=== PATIENT | female | born 1930 | race Caucasian/White ===

== ENCOUNTER 2019-01-18 08:02 | Inpatient (IN) | payer OTHER ==
[~2019-01-18] VITALS: Ht 157.5 cm; Wt 56.2 kg
[2019-01-18] VITALS (15 sets, daily range): BP systolic 140–205; BP diastolic 58–90
[~2019-01-18 08:02] MED LIST: ADULT LOW DOSE81 MG PO; ALDACTONE25 MG PO; APAP500 PO; ASPIR 8181 MG PO; ATORVASTATIN CA20 MG PO; CARVEDILOL12.5 MG PO; CENTRUM SILVER1 EAC1 PO; CENTRUM SILVER1 EAC4; CRESTOR10 MG PO; ENALAPRIL MALEAT5 M1 PO; ENDOCET 5-3251 EACH PO; FIBER POWDER; FLONASE 0.05%50 MCG NASAL; FLUTICASONE PRO30 G1 NASAL; FUROSEMIDE 40 M40 M1 GT; HYOSCYAMINE PO; ICAPS AREDS FO1 EACH PO; LANOXIN 0.120.125 M1 PG; LASIX 40 MG TAB40 M1 GT; MAG DELAY64 MG PO; METOCLOPRAMIDE 55 M1 PO; MICRO-K 10 MEQ10 MEQ OR; MIRALAX17 GM PO; NIASPAN 500 MG500 M1 PO; NITROGLYCERIN0.4 MG SUBLING; PEPCID COMPLET1 EACH PO; PERCOCET PO; PLAVIX 75 MG TA75 MG PO; POTASSIUM20; PROTONIX40 M2 PO; REFRESH OPTIVE1 EACH OP; REGLAN 5 MG TAB5 MG PO; SLOW-MAG64 MG PO; VASOTEC10 MG PO; VICODIN 5-5001 EACH PO; VITAMIN B-12500 MCG PO; VITAMIN D3400 UNIT PO; VITAMIN D400 UNI1 PO; XARELTO15 MG PO; [UNRECOGNIZED DRUG - CODE]
[2019-01-18 08:24] LABS: ABSOLUTE EOSINOPHILS 0.1 thou/uL (0.0-0.7); ABSOLUTE LYMPHOCYTES 1.3 thou/uL (0.8-5.3); ABSOLUTE MONOCYTES 0.6 thou/uL (0.0-1.2); ABSOLUTE NEUTROPHILS 5.1 thou/uL (1.6-8.1); BASOPHILS 0.4 %; HEMATOCRIT 39.1 % (37.0-47.0); HEMOGLOBIN 12.7 gm/dL (12.0-15.0); LYMPHOCYTES 18.4 %; MCH 30.8 pg (26.0-34.0); MCHC 32.5 g/dL (28.0-37.0); MCV 94.6 fL (80.0-100.0); MONOCYTES 8.2 %; MPV 9.1 fl. (7.2-11.1); NUCLEATED RBCS 0 /100WBC; PLATELET COUNT* 210 thou/uL (150-400); RBC 4.14 mil/uL (4.20-5.00); RDW-CV 13.7 % (10.5-14.5); WBC 7.2 thou/uL (4.0-11.0)
[2019-01-18 08:32] LABS: APTT 24.6 Seconds (25.0-31.3); INR 1.1; PROTIME 11.3 Seconds (9.20-11.50)
--- NOTE | 2019-01-18 08:36 | NUR ---
see code stemi form for documentation
[2019-01-18] MEDS ORDERED: PRESERVISION A1 EAC2 PO (08:39)
[2019-01-18] MEDS ORDERED: IMDUR 30 MG TAB30 M1 PO (08:39)
[2019-01-18] MEDS ORDERED: TYLENOL EXTRA500 MG PO (08:39)
[2019-01-18 08:40] LABS: ANION GAP 5 mmol/L (7-16); BUN 19 mg/dL (7-18); CALCIUM 9.2 mg/dL (8.5-10.1); CHLORIDE 105 mmol/L (98-107); CO2 28 mmol/L (21-32); GLUCOSE 131 mg/dL (70-99); POTASSIUM 4.1 mmol/L (3.5-5.1); SODIUM 138 mmol/L (136-145); TROPONIN-I LEVEL <0.06 ng/mL (<0.06)
[2019-01-18 08:42] LABS: ALBUMIN 3.6 g/dL (3.4-5.0); ALKALINE PHOSPHATASE 44 U/L (46-116); NT-PRO BRAIN NAT PEPTIDE 2568 pg/mL (<300); SGOT 33 U/L (15-37); SGPT 53 U/L (30-65); TOTAL PROTEIN 6.9 g/dL (6.4-8.2)
--- NOTE | 2019-01-18 11:59 | NUR ---
enalapril 1.25 iv and zofran 4mg iv given for nausea and elevated BP per order from Dr. Patiño
--- NOTE | 2019-01-18 17:44 | EKG ---
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: : 1930 Requested By: Salo Patiño Order Number: [id number] Carly MD: Kilo Hinkle Measurements Intervals [place] Rate: 56 P: -66 [place]: 206 QRS: -36 QRSD: 89 T: 134 QT: 367 QTc: 355 Interpretive Statements Sinus or ectopic atrial rhythm LVH with secondary repolarization abnormality Possible Anterior infarct, old Compared to ECG 09/10/2016 14:10:16 Ectopic atrial rhythm now present Sinus rhythm no longer present Ventricular premature complex(es) no longer present First degree AV block no longer present Q waves no longer present Myocardial infarct finding still present Electronically Signed On 01-18-2019 17:44:45 CDT by Kilo Hinkle [email or web address] <ELECTRONICALLY SIGNED> By: Kilo Hinkle MD, FAC 01/18/19 1744 0845 0845 Kilo Hinkle MD, [facility] /EPI
--- NOTE | 2019-01-18 17:44 | EKG ---
[place] [address] ELECTROCARDIOGRAM REPORT Name: JEMIMA GARNER Room: [address] ADM IN M.R.#: [id number] Admission: 01/18/19 Attend Phys: Nanette Varela Discharge: Date of : [birth year] Report #: [id number] THIS REPORT FOR: //name// [facility] ED Test Date: 2019-01-18 Test Time: 08:05:07 Pat Name: JEMIMA GARNER Department: Room: [address] Gender: F Cutch Cleaner: SLAVA EMT STUDENT : 1930 Requested By: Poppy Chowdhury Order Number: [id number] Carly MD: Kilo Hinkle Measurements Intervals [place] Rate: 64 P: -72 AR: 216 QRS: -33 QRSD: 96 T: 137 QT: 358 QTc: 370 Interpretive Statements Sinus or ectopic atrial rhythm Borderline prolonged AR interval LVH with secondary repolarization abnormality Possible anterior infarct, age indeterminate Compared to ECG 09/10/2016 14:10:16 Ectopic atrial rhythm now present Sinus rhythm no longer present Ventricular premature complex(es) no longer present Q waves no longer present Myocardial infarct finding still present Electronically Signed On 01-18-2019 17:44:23 CDT by Kilo Hinkle [email or web address] <ELECTRONICALLY SIGNED> By: Kilo Hinkle MD, [facility] 01/18/19 1744 4 4 Kilo Hinkle MD, [facility] /EPI
--- NOTE | 2019-01-18 17:45 | EKG ---
[place] [address] ELECTROCARDIOGRAM REPORT Name: JEMIMA GARNRE Room: [address] ADM IN M.R.#: [id number] Admission: 01/18/19 Attend Phys: Nanette Varela Discharge: Date of : [birth year] Report #: [id number] THIS REPORT FOR: //name// [facility] Test Date: 2019-01-18 Test Time: 10:52:13 Pat Name: JEMIMA GARNER Department: Room: [facility] Gender: F Event Marketing Coordinator: CRISTINO : 1930 Requested By: Poppy Chowdhury Order Number: [id number] MD: Kilo Hinkle Measurements Intervals [place] Rate: 55 P: -46 [place]: 213 QRS: -30 QRSD: 93 T: 130 QT: 374 QTc: 358 Interpretive Statements Sinus or ectopic atrial rhythm Ventricular premature complex Borderline prolonged [place] interval LVH with secondary repolarization abnormality Inferior infarct, old Compared to ECG 09/10/2016 14:10:16 Ectopic atrial rhythm now present Sinus rhythm no longer present Q waves no longer present Myocardial infarct finding still present Electronically Signed On 01-18-2019 17:45:20 CDT by Kilo Hinkle [email or web address] <ELECTRONICALLY SIGNED> By: Kilo Hinkle MD, FACC 01/18/19 1745 1052 1052 Kilo Hinkle MD, FACC /EPI
--- NOTE | 2019-01-18 19:52 | NUR ---
PT TO UNIT AT APPROX 1300 FROM HVAC TECHNICIAN. A/O. TELE TRACKING NSR/AJIT. PT HYPERTENSIVE- MD AWARE AND NO ADDITIONAL ORDERS AT THIS TIME. HEMATOMA (DEVELOPED IN CATH RECOVERY) OUTLINED ONCE PT ARRIVED TO ROOM AND HAS REMAINED STABLE. PT C/O CHRONIC BACK PAIN/CHRONIC HEADACHE AND NAUSEA- MEDICATED PER EMAR. CHAN TO DD WITH ADEQUATE CY OUTPUT. EDUCATED ON SAFETY AND PLAN OF CARE. PLEASE SEE ASSESSMENT FOR ADDITIONAL INFORMATION. WILL CONTINUE TO MONITOR
[2019-01-19] VITALS: BP 140/73
[2019-01-19 02:30] VITALS: BP 187/72
[2019-01-19 04:49] VITALS: BP 173/65
--- NOTE | 2019-01-19 04:56 | NUR ---
ASSUMED CARE OF PT AFTER REPORT AT 1930. PT A&OX4. VSS. PHYSICAL ASSESSMENT COMPLETED AND CHARTED. PT ON RA WITH 94% O2 SAT. PT TRACING SR ON TELE. PT POST CATH SITE DRESSING MINIMAL DRIED BLOOD NOTED. HEMATOMA NOTED BORDERED WITH MARKERS AND NO INCREASE IN SIZE.NO TENDERNESS. PT COMPLAINED OF HEADACHE & BACK PAIN-PAIN MEDS GIVEN. ALSO, PT STILL COMPLAINED OF NAUSEA EVEN AFTER ZOFRAN WAS GIVEN- DR ADHIKARI INFORMED WITH ADDITIONAL ORDERS. PT RESTED WELL ON BED. CALL LIGHT WITHIN REACH.
[2019-01-19 05:05] LABS: HEMATOCRIT 31.6 % (37.0-47.0); MCHC 33.2 g/dL (28.0-37.0); MCV 93.4 fL (80.0-100.0); MPV 9.6 fl. (7.2-11.1); RBC 3.38 mil/uL (4.20-5.00); RDW-CV 13.2 % (10.5-14.5); WBC 10.1 thou/uL (4.0-11.0)
[2019-01-19 05:21] LABS: HEMOGLOBIN 10.5 gm/dL (12.0-15.0)
[2019-01-19 05:24] LABS: ALKALINE PHOSPHATASE 39 U/L (46-116); ANION GAP 6 mmol/L (7-16); BUN 16 mg/dL (7-18); CALCIUM 8.6 mg/dL (8.5-10.1); CHLORIDE 103 mmol/L (98-107); CHOLESTEROL 94 mg/dL (<200); CO2 24 mmol/L (21-32); CREATININE 0.9 mg/dL (0.6-1.3); GLUCOSE 106 mg/dL (70-99); HDL CHOLESTEROL 38 mg/dL (>40); LDL CHOLESTEROL 39 mg/dL (<100); POTASSIUM 3.8 mmol/L (3.5-5.1); SGOT 26 U/L (15-37); SGPT 33 U/L (30-65); SODIUM 133 mmol/L (136-145); TC:HDL 2.5 Ratio (Not establshd); TOTAL BILIRUBIN 1.4 mg/dL (<0.1-1.0); TOTAL PROTEIN 5.7 g/dL (6.4-8.2); TRIGLYCERIDE 85 mg/dL (<150); TROPONIN-I LEVEL 0.23 ng/mL (<0.06); VLDL 17 mg/dL (<40)
[2019-01-19 05:33] LABS: SERUM ASSESSMENT Clear
[2019-01-19 08:00] VITALS: BP 188/67
--- NOTE | 2019-01-19 12:42 | NUR ---
Sosa catheter DC'ed at 1230. 10cc balloon deflated, patient tolerated well.
[2019-01-19 13:00] VITALS: BP 158/55
[2019-01-19] MEDS ORDERED: ATORVASTATIN CA40 MG PO (14:29)
[2019-01-19] MEDS ORDERED: BRILINTA90 MG PO (14:32)
[2019-01-19 14:45] VITALS: BP 169/66
--- NOTE | 2019-01-19 15:24 | CARD ---
[address] [address] CARDIAC CATH REPORT Name: JEMIMA GARNER Room: [address] IN .R.#: [id number] Admission: 01/18/19 Attend Phys: Nanette Varela Discharge: Date of : [birth year] Report #: [id number] THIS REPORT FOR: //name// APPROVED REPORT Study performed: 01/18/2019 08:02:35 Patient Details Patient Status: Out-Patient Room #: The patient is a 88 year-old female Event Personnel Salo Patiño Puttying And Calking Supervisor, Henrietta Alberto Setup Technician, Brittani Clancy Monitor, Fernando Gresham Scrub Procedures Performed Complete Heart Catheterization, Selective Right and Left Coronary Angiography, Left Ventriculogram, PTCA with StentingArt Access - R femoral artery* Left Heart Cath w/or w/o Coronaries [id number] [facility] CINDY Place w/wo Plasty Single CIRC [id number] Indication Non-STEMI Risk Factors Hypercholesterolemia, Hypertension Admission/Lab Medications/Medications given during procedure Aspirin, Platelet Aff. Inhib., Angiomax bolus and infusion Procedure Narrative The patient was brought electively to the Cardiac Catheterization Laboratory and was prepped and draped in a sterile manner. The right femoral was infiltrated with 2% Lidocaine subcutaneous anesthesia. A 6fr Ultimum Sheath sheath was inserted into the right femoral artery. Coronary angiography was performed using coronary diagnostic catheters. The right coronary system was accessed and visualized with a 6fr JR 4 catheter. The left coronary system was accessed and visualized with a 6fr JL 4 catheter. The left ventricle was accessed and visualized with a 6fr Pigtail catheter. Left ventricular/Aortic Valve gradient assessed via catheter pullback. Pre-demployment femoral angiogram was performed . Closure device was deployed with a 6 Fr Angioseal STS 6Fr. [place] [address] CARDIAC CATH REPORT Name: JEMIMA GARNER Room: [address] IN [facility].#: [id number] Admission: 01/18/19 Attend Phys: Nanette Varela Discharge: Date of : [birth year] Report #: [id number] Sedation start time: 09:05 Case end Time: 10:01 Fluoro Time: 9.6 minutes Dose: DAP 19985 cGycm2 790.48 mGy Contrast Type and Amount: Visipaque 225 ml Coronary Angiography The patient's coronary anatomy is right dominant. Diagnostic Cath Left Main 0% narrowing LAD 40% mid vessel narrowing with tandem 60 and 80% apical LAD stenoses Circumflex 80 Percent mid vessel narrowing with local dye density difference suggesting thrombus at the site Right Coronary Dominant vessel with 30% proximal mid and distal narrowings Left Ventriculography Left Ventriculography was not performed. Hemodynamics The aortic pressure is 191/72 mmHg with a mean of mmHg. The left ventricular pressure is 220/15 mmHg with a mean of mmHg. The left ventricular end diastolic pressure is 30 mmHg. Pullback from the left ventricle to the aorta revealed no gradient across the aortic valve. PCI Technique Lesion Anticoagulation was achieved with Angiomax Drip. Patient was preloaded with Angiomax IV 5.9 mg per kg. Percutaneous coronary intervention was performed on the mid circumflex artery segment. The lesion stenosis prior to intervention was 80% with MAREN 3 flow. A 6F XB LAD 3.5 Guide Catheter was used to engage the LCA ostium. A IG: BMW 190cm Interventional Guidewire was used to cross the lesion. BALLOON DILATION A Balloon catheter Trek RX 2.5 X 12 was inserted and inflated up to 12.00atm for 13seconds. Additional Inflation: 15.00atm for 13seconds. STENT DEPLOYMENT A drug-eluting stent Xience Estefany 2.5X12mm was inserted and inflated up to 10.00atm for 13seconds. Additional Inflation: 12.00[place] [address] CARDIAC CATH REPORT Name: JEMIMA GARNER Room: [address]#: [id number] Admission: 01/18/19 Attend Phys: Nanette Varela Discharge: Date of : [birth year] Report #: [id number] 14seconds. Final angiography reveals 10 % stenosis with MAREN 3 flow. Conclusion #1 significant coronary artery disease characterized by the following: A 40% mid LAD narrowing with tandem 60 and 80% distal LAD stenoses B dominant right coronary artery with 30% proximal mid and distal narrowings C nondominant circumflex with 80% mid vessel stenosis and local dye density difference suggesting thrombus at the site #2 significant systolic hypertension with significant elevation of left ventricular end-diastolic pressure at rest #3 successful percutaneous coronary intervention with deployment of drug-eluting stent at site of 80% mid circumflex stenosis with 10% residual narrowing and MAREN-3 flow the distal vessel without residual thrombus Recommendations Cardiac Risk Reduction Program Aggressive Medical Therapy Medications Administered Aspirin (any) Ticagrelor Diagnostic Cath Approved by: Salo Patiño MD Date/Time: 01/19/2019 15:21:37 <ELECTRONICALLY SIGNED> By: Salo Patiño MD, [facility] 01/19/19 1523 1523 1523Salo Patiño MD, FACC /INF
--- NOTE | 2019-01-19 16:21 | NUR ---
ORDER RECEIVED TO DISCHARGE [facility] TO CARE WITH SON. MED REC, MEDICATION EDUCATION, AND STROKE EDUCATION COVERED WITH PATIENT AND SON. ADEQUATE TIME GIVEN FOR CARE AND MEDICATION QUESTIONS. PATIENT AND SON EDUCATED ON ACTIVITY AND WEIGHT LIFTING RESTRICTIONS R/T RIGHT GROIN CARDIAC CATH SITE AND NEW CARDIAC STENT PLACEMENT. IV AND TELEMETRY PACK REOMVED. JARETT ET STABLE AT TIME OF DISCHARGE. DISCHARGE TIME OF 15:30. HOURLY ROUNDING COMPLETED FOR PATIENT SAFETY.
--- NOTE | 2019-01-19 17:10 | EKG ---
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: RB : 1930 Requested By: Salo Patiño Order Number: [id number] Reading MD: Kilo Hinkle Measurements Intervals [place] Rate: 63 P: -45 DC: 199 QRS: -33 QRSD: 91 T: 124 QT: 433 QTc: 444 Interpretive Statements Sinus or ectopic atrial rhythm Ventricular premature complex LVH with secondary repolarization abnormality Inferior infarct, old Probable anterior infarct, age indeterminate Compared to ECG 01/18/2019 10:52:13 No significant changes Electronically Signed On 01-19-2019 17:09:51 CDT by Kilo Hinkle [email or web address] <ELECTRONICALLY SIGNED> By: Kilo Hinkle MD, FACC 01/19/19 1709 0601 0601 Kilo Hinkle MD, [facility] /EPI
== END 2019-01-19 15:25 | disposition home or self-care (01) | DRG 246 ==
LOC: M.CL 08:02 → M.ERS 08:02 → M.TBA-CV 08:52 → M.2W 08:52 → M.TBA-CV 10:27 → M.2W 13:00
PROVIDERS: Internal Medicine; Personal Emergency Response Attendant; ADMIT Internal Medicine
PROC: B211YZZ Fluoroscopy of Multiple Coronary Arteries using Other Contrast (ICD-10-PCS; principal; 2019-01-18)
PROC: B41JYZZ Fluoroscopy of Other Lower Arteries using Other Contrast (ICD-10-PCS; principal; 2019-01-18)
PROC: 4A023N7 Measurement of Cardiac Sampling and Pressure, Left Heart, Percutaneous Approach (ICD-10-PCS; principal; 2019-01-18)
PROC: 027034Z Dilation of Coronary Artery, One Artery with Drug-eluting Intraluminal Device, Percutaneous Approach (ICD-10-PCS; principal; 2019-01-18)
DX: I21.3 ST elevation (STEMI) myocardial infarction of unspecified site (principal); I50.23 Acute on chronic systolic (congestive) heart failure; I25.110 Atherosclerotic heart disease of native coronary artery with unstable angina pectoris; I24.9 Acute ischemic heart disease, unspecified; I65.21 Occlusion and stenosis of right carotid artery; I25.5 Ischemic cardiomyopathy; G89.29 Other chronic pain; M54.5 Low back pain; E78.5 Hyperlipidemia, unspecified; I11.0 Hypertensive heart disease with heart failure; E11.9 Type 2 diabetes mellitus without complications; I25.10 Atherosclerotic heart disease of native coronary artery without angina pectoris; I25.2 Old myocardial infarction; Z95.5 Presence of coronary angioplasty implant and graft; Z86.711 Personal history of pulmonary embolism; Z88.8 Allergy status to other drugs, medicaments and biological substances; Z79.82 Long term (current) use of aspirin; Z79.899 Other long term (current) drug therapy; Z90.5 Acquired absence of kidney

== ENCOUNTER 2020-01-06 17:39 | Inpatient (IN) | payer OTHER ==
[~2020-01-06] VITALS: Ht 162.6 cm; Wt 59.6 kg
--- NOTE | ~2020-01-06 | CON ---
[facility] [address] [place] [address] CONSULTATION Name: JEMIMA GARNER Room: [place] [address] ADM IN M.R.#: [id number] Admission: 01/06/20 Attend Phys: Nanette Varela Discharge: Date of : [birth year] Report #: [id number] THIS REPORT FOR: //name// cc: Russell Lopez DO Russell Lopez DO ~ THIS REPORT FOR: //name// CC: Russell Oviedo DATE OF SERVICE: 01/07/2020 REQUESTING PHYSICIAN: Dr. Murcia REASON FOR CONSULTATION: Hyponatremia. HISTORY OF PRESENT ILLNESS: The patient is an 89-year-old female patient, brought in from a nursing facility. She has been in that facility for rehabilitation from a right shoulder surgery gone bad, which gave her septic arthritis. This was performed at [facility] recently. The patient has been on multiple antibiotics. She also has been dealing with low sodium levels in the nursing facility. Yesterday, her sodium was 120 and she was sent over to the hospital. In discussion with the nursing staff, it was conveyed to me that the patient had been drinking a lot of fluids in the nursing facility. This morning, the patient appears very lethargic and tired. She denies any significant pain except for some chronic pain in her shoulder, which is postoperative pain. She reported some nausea last night too, but no vomiting has been reported. Speech therapy was seeing her this morning and she has been cleared for honey thick nectar fluids. She denies any fevers. No chills. She has had bilateral pneumonia and has been getting antibiotics for the same. PAST MEDICAL HISTORY: Coronary artery disease, history of VT, history of coronary artery stent, apparently history of nephrectomy with removal of kidney in 2000, history of hypertension, dyslipidemia, carotid stenosis, renal cell cancer, and septic arthritis of right shoulder and recent surgery for the same. HOME MEDICATIONS: Reviewed and multiple. Acetaminophen, albuterol inhalers, ascorbic acid, lidocaine patch, enteric-coated aspirin, atorvastatin, cyanocobalamin, menthol, bisacodyl, calcium phosphate, cefazolin daily, clonidine at bedtime, carvedilol 25 mg twice daily, digoxin, enalapril 20 mg daily, MiraLax, levofloxacin daily, magnesium hydroxide, nitroglycerin, [place] [address] CONSULTATION Name: JEMIMA GARNER Room: [address] IN [facility]#: [id number] Admission: 01/06/20 Attend Phys: Nanette Varela Discharge: Date of : [birth year] Report #: [id number] oxybutynin 5 mg twice daily, oxycodone p.r.n., Plavix, cyclosporine eye drops, senna, spironolactone 25 mg daily, and diclofenac ointment. ALLERGIES: HYDRALAZINE AND AMLODIPINE. 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 No alcohol reported. No smoking. REVIEW OF SYSTEMS: She appears very lethargic and tired, barely opens eyes, gives answers and then drifts back to sleep right away. She denies any nausea. No fevers. No chills. Right shoulder pain. She is able to move her arms and her legs. PHYSICAL EXAMINATION: VITAL SIGNS: Her blood pressure this morning was 188/75 and was 137/86 in the middle of night; 2 liters oxygen by nasal cannula and 94% saturation on that; 37.1, temperature, and pulse of 73. LUNGS: Diminished bilaterally. Crackles on the right base, more on the left. Very poor air entry in the left base. HEART: Regular S1, S2. ABDOMEN: Soft. HEENT: Mucous membranes appear dry. EXTREMITIES: Show no edema over the legs, but there is edema over the upper thighs and especially over the hip. It is my understanding that the patient has not been very ambulatory and mostly in the bed. LABORATORY DATA: Her labs were reviewed. White count is 5.6 and hemoglobin is 8.6. Metabolic panel: Sodium is 121, potassium is 3.7, chloride 90, bicarbonate 22, BUN is 9, creatinine 0.9, calcium 8, AST 36, ALT 6, and CK 47. BNP 24,478. Albumin 2.0 and lipase 359. IMAGING STUDIES: Chest x-ray was done on admission, which shows fywn-og-xmqdhkdh cardiomegaly, bibasilar opacities, atelectasis, consolidation, bnpdh-hs-glpkjnwi bilateral pleural effusions, and no pneumothorax. ASSESSMENT: 1. Hyponatremia. Volume status is difficult to assess. Blood pressures have been on the higher side, but that could be driven by her pain too. 2. She appears euvolemic to maybe slightly hypervolemic by exam. 3. Bilateral pleural effusions and recent diagnosis of pneumonia. 4. Questionable history of increased water intake in the nursing facility. She has been on oxybutynin, clonidine, and narcotics. Many of these medications could give her anticholinergic side effects. 5. Recent shoulder surgery with septic arthritis. 6. History of coronary artery disease and hypertension. [address] [place] [address] CONSULTATION Name: JEMIMA GARNER Room: [address] IN [facility]#: [id number] Admission: 01/06/20 Attend Phys: Nanette Varela Discharge: Date of : [birth year] Report #: [id number] PLAN: 1. Hyponatremia. Workup has been initiated. Send urine for sodium and osmolality. She has a Sosa catheter in place. The patient received IV fluids on admission and then a dose of Lasix but that was many hours ago. Urine sample was drawn from the catheter directly and from the bag it may be a reasonable reflection of the volume status at this time. 2. Check uric acid level also. 3. Check thyroid studies. 4. Hyponatremia could be driven by the intrathoracic findings of pneumonia and bilateral pleural effusions, but I am not sure if the pleural effusions are parapneumonic or from fluid overload. Her BNP was markedly elevated, and she does have uvvf-pq-anhnvfjs cardiomegaly. An echocardiogram might be recommended unless reports can be obtained from the [facility] where many of those tests have already been done. For now, keep the patient on fluid restriction of 1.5 liters. Discussed in detail with the nursing staff. We will follow along and give further recommendations based on the testing done today. Thank you for the consult. By: 1041 1120Tasha Toledo MD /nt
[~2020-01-06 17:39] MED LIST changes: +ATORVASTATIN CA40 MG PO; +BRILINTA90 MG PO; +IMDUR 30 MG TAB30 M1 PO; +PRESERVISION A1 EAC2 PO; +TYLENOL EXTRA500 MG PO
[2020-01-06 17:44] VITALS: BP 123/81
[2020-01-06] MEDS ORDERED: APAP650 PO (18:03)
[2020-01-06] MEDS ORDERED: VITAMIN C500 M2 PO (18:03)
[2020-01-06] MEDS ORDERED: PROAIR HFA8.5 GM INH (18:03)
[2020-01-06] MEDS ORDERED: ASPERCREME1 EACH TOP (18:04)
[2020-01-06] MEDS ORDERED: VITAMIN B-121000 MC2 SUBLING (18:05)
[2020-01-06] MEDS ORDERED: ASA81BEC PO (18:05)
[2020-01-06] MEDS ORDERED: BIOFREEZE118 ML TOP (18:05)
[2020-01-06] MEDS ORDERED: LIPITOR40 MG PO (18:05)
[2020-01-06] MEDS ORDERED: CALCIUM-VITAMI1 EACH PO (18:06)
[2020-01-06] MEDS ORDERED: GENTLE LAXATIVE10 MG (18:06)
[2020-01-06] MEDS ORDERED: ANCEF 1GM1 GM/50 M1 IVPB (18:07)
[2020-01-06] MEDS ORDERED: DIGITEK125 MC2 PO (18:07)
[2020-01-06] MEDS ORDERED: CARVEDILOL25 MG PO (18:07)
[2020-01-06] MEDS ORDERED: CLONIDINE HCL0.2 M2 PO (18:07)
[2020-01-06] MEDS ORDERED: ENALAPRIL MALEA20 MG PO (18:08)
[2020-01-06] MEDS ORDERED: LACTOBACILLUS PO (18:09)
[2020-01-06] MEDS ORDERED: POLYOX WSR-3011 GM (18:09)
[2020-01-06] MEDS ORDERED: MILK OF MA400 MG/5 M PO (18:10)
[2020-01-06] MEDS ORDERED: LEVAQUIN 750 M750 MG PO (18:10)
[2020-01-06] MEDS ORDERED: [UNRECOGNIZED DRUG - OTHER] (18:10)
[2020-01-06] MEDS ORDERED: OXYBUTYNIN 5 MG5 M2 PO (18:11)
[2020-01-06] MEDS ORDERED: PERCOCET 5-3251 EACH PO (18:11)
[2020-01-06] MEDS ORDERED: NITROSTAT0.4 M1 (18:11)
[2020-01-06] MEDS ORDERED: RESTASIS1 EACH OPHTHALMIC (18:12)
[2020-01-06] MEDS ORDERED: FIBER0.4 GM PO (18:12)
[2020-01-06] MEDS ORDERED: PLAVIX 75 MG TA75 MG PO (18:12)
[2020-01-06] MEDS ORDERED: VOLTAREN GEL 1100 G1 TOP (18:13)
[2020-01-06] MEDS ORDERED: SPIRONOLACTONE25 MG PO (18:13)
[2020-01-06] MEDS ORDERED: SENNA8.8 MG/5 M PO (18:13)
[2020-01-06 18:17] LABS: INFLUENZA A ANTIGEN Negative (Negative); INFLUENZA B ANTIGEN Negative (Negative)
[2020-01-06 18:25] LABS: ABSOLUTE EOSINOPHILS 0.1 thou/uL (0.0-0.7); ABSOLUTE LYMPHOCYTES 0.7 thou/uL (0.8-5.3); ABSOLUTE MONOCYTES 0.5 thou/uL (0.0-1.2); ABSOLUTE NEUTROPHILS 4.3 thou/uL (1.6-8.1); BASOPHILS 0.3 %; EOSINOPHILS 2.1 %; HEMATOCRIT 25.1 % (37.0-47.0); HEMOGLOBIN 8.6 gm/dL (12.0-15.0); LYMPHOCYTES 12.3 %; MCH 31.1 pg (26.0-34.0); MCHC 34.4 g/dL (28.0-37.0); MCV 90.5 fL (80.0-100.0); MONOCYTES 9.1 %; MPV 8.6 fl. (7.2-11.1); NUCLEATED RBCS 0 /100WBC; PLATELET COUNT* 289 thou/uL (150-400); POLYS 76.2 %; RBC 2.77 mil/uL (4.20-5.00); RDW-CV 13.2 % (10.5-14.5); WBC 5.6 thou/uL (4.0-11.0)
[2020-01-06 18:35] LABS: INR 1.3; PROTIME 13.1 Seconds (9.20-11.50)
[2020-01-06 18:36] LABS: CREATININE 0.9 mg/dL (0.6-1.3); POTASSIUM 3.7 mmol/L (3.5-5.1)
[2020-01-06 18:46] LABS: TOTAL BILIRUBIN 0.3 mg/dL (<0.1-1.0); TOTAL PROTEIN 5.6 g/dL (6.4-8.2)
[2020-01-06 19:44] LABS: URINE BILIRUBIN NEGATIVE (Negative); URINE BLOOD NEGATIVE (Negative); URINE CLARITY CLEAR; URINE COLOR YELLOW; URINE GLUCOSE-RANDOM NEGATIVE (Negative); URINE KETONES TRACE (Negative); URINE LEUKOCYTES-REFLEX NEGATIVE (Negative); URINE NITRITE-REFLEX NEGATIVE (Negative); URINE PROTEIN 2+ (Negative); URINE SPECIFIC GRAVITY 1.025 (1.005-1.030); URINE UROBILINOGEN 0.2 E.U./dl (0.2-1.0)
[2020-01-06 19:53] LABS: SQUAMOUS 0-3 Few /LPF (0-3); URINE RBC 0-2 Rare /HPF (0-2)
[2020-01-06 19:54] LABS: BACTERIA-REFLEX 1-9 Few /HPF (None Seen); CRYSTALS None Seen /LPF (None Seen); FINE GRANULAR CASTS 0-3 Few /LPF (None Seen); HYALINE CASTS 4-10 Moderate /LPF (None Seen); MUCUS 0-3 Light strn/LPF (None Seen)
[2020-01-06 22:30] VITALS: BP 192/100; BP 204/100
[2020-01-06 22:35] VITALS: BP 184/86
[2020-01-07 01:10] VITALS: BP 137/86
[2020-01-07 04:00] VITALS: BP 169/93
--- NOTE | 2020-01-07 06:00 | NUR ---
RECEIVED REPORT FROM GEORGE MILLER AT 2210. PT ARRIVED TO UNIT AT 2230. NURSING ASSESSMENT COMPLETED, PRICE ECONOMIST IN PLACE, TRACING SR 1D PACS. HOURLY ROUNDING COMPLETED. Q2H REPOSITIONING COMPLETED. FAMILY IN ROOM WITH PATIENT. PT PLACED NPO FOR TROUBLE SWALLOWING. [facility] PER PROTOCOL.
[2020-01-07 08:00] VITALS: BP 188/75
--- NOTE | 2020-01-07 10:10 | EKG ---
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: [facility] : 1930 Requested By: Jorge Murcia Order Number: [id number] MD: Kuldeep Mays Measurements Intervals [place] Rate: 71 P: -70 [place]: 230 QRS: -15 QRSD: 94 T: 152 QT: 349 QTc: 380 Interpretive Statements Sinus or ectopic atrial rhythm Ventricular premature complex Prolonged [place] interval Probable inferior infarct, age indeterminate Probable anterior infarct, age indeterminate Compared to ECG 01/19/2019 06:01:42 First degree AV block now present Left ventricular hypertrophy no longer present Myocardial infarct finding still present Electronically Signed On 01-07-2020 10:09:33 MOLD SHIFTER by Kuldeep Mays [email or web address] <ELECTRONICALLY SIGNED> By: Kuldeep Mays MD, [facility] 01/07/20 1009 1818 1818 Kuldeep Mays MD, [facility] /EPI
--- NOTE | 2020-01-07 14:36 | NUR ---
MET WITH PT AND GRANDDTR/RINA TO DISCUSS HOME SITUATION/DC PLANNING. PT WAS ADMITTED FROM [facility], HAS BEEN THERE SINCE 12/25 POST A SHOULDER INFECTION AND SURGERY, GETTING IV ABX. PER RINA, PT GETS INJECTIONS IN HER SHOULDER AND WAS HAVING PAIN, DEVELOPED INFECTION AND HAD SURGERY. PLAN IS FOR HER TO RETURN TO SNF AT [place]. ASKED DC PLANNED TO CONTACT [facility] AND FAX UPDATE. THEY WILL HAVE TO OBTAIN INSURANCE AUTH AGAIN PRIOR TO RETURN. SON/ERIC IS DPOA. CM TO FOLLOW [place] [phone] FAX [phone] OR [phone]
--- NOTE | 2020-01-07 14:48 | NUR ---
CONFIRMED WITH KRYSTAL/TRACEE AT [facility] THAT THE PATIENT WILL BE READY TO DISCHARGE NEXT WEEK AND WOULD LIKE TO RETURN TO THEIR SNF. FAXED UPDATED CLINICALS. THEY WILL SUBMIT FOR INSURANCE AUTHORIZATION ON 01/10/20. [facility] [phone]
--- NOTE | 2020-01-07 18:59 | NUR ---
PATINET RESTING IN BED. VSS. CHAN TO DRAIN WITH CLEAR LIGHT YELLOW OUT PUT. HOURLY ROUNDING COMPLETED FOR PATINET SAFETY.
[2020-01-07 20:20] VITALS: BP 205/92
[2020-01-08] VITALS: BP 149/59
[2020-01-08 04:00] VITALS: BP 154/62
--- NOTE | 2020-01-08 04:25 | NUR ---
ASSUMED CARE AT 1910H, ON NC AT 3LPM AND TOLERATED.NO RESPIRATORY DISTRESS NOTED.COMPLAINED OF BACK PAIN AND PRN MED GIVEN.TOOK ORAL PILL WELL WITH ASPIRATION PRECAUTION.FLUID RESTRICTION REITERATED.CONTINUE MONITORING AND TOWARD GOALS.
[2020-01-08 08:30] VITALS: BP 173/76
[2020-01-08 08:38] LABS: CALCIUM 7.5 mg/dL (8.5-10.1); CREATININE 0.8 mg/dL (0.6-1.3); URIC ACID* 1.9 mg/dL (2.6-7.2)
[2020-01-08 08:50] LABS: POTASSIUM 2.8 mmol/L (3.5-5.1)
[2020-01-08 15:46] VITALS: BP 179/86
[2020-01-08 20:10] VITALS: BP 190/87
[2020-01-09] VITALS: BP 173/74
[2020-01-09 05:43] LABS: ALBUMIN 1.9 g/dL (3.4-5.0); CALCIUM 7.4 mg/dL (8.5-10.1); CREATININE 0.7 mg/dL (0.6-1.3); MAGNESIUM 1.6 mg/dL (1.8-2.4); PHOSPHORUS* 1.9 mg/dL (2.5-4.9)
[2020-01-09 05:47] LABS: POTASSIUM 4.1 mmol/L (3.5-5.1)
--- NOTE | 2020-01-09 07:52 | NUR ---
PT CARE ASSUMED AT 1930. C/O SOB, SAT MAINTAINED, CONNECTED IN O2 FOR COMFORT. C/O PAIN, MEDICATION GIVEN PER EMAR. CALL LIGHT WITHIN REACH AND BED IN LOW POSITION. HOURLY ROUNDING DONE FOR PT SAFETY.
[2020-01-09 08:30] VITALS: BP 177/82
--- NOTE | 2020-01-09 10:00 | NUR ---
PATIENT ARRIVED TO UNIT FROM TELE AT 0945. RECEIVED REPORT FROM MARCOS Pratt RN. ALERT AND ORIENTED X 4. VITAL SIGNS STABLE ON 2L O2 NASAL CANULA. IV PATENT AND SALINE LOCKED. AGREE WITH PREVIOUS ASSESSMENT AND CHARTING. ORIENTED PATIENT TO ROOM. FALL PRECAUTIONS IN PLACE AND BED ALARM ON. CALL LIGHT WITHIN REACH. NURSING WILL CONTINUE TO MONITOR.
[2020-01-09 16:00] VITALS: BP 143/63
--- NOTE | 2020-01-09 18:02 | NUR ---
PATIENT ALERT AND ORIENTED X 4. FORGETFUL AT TIMES. VITAL SIGNS STABLE ON 2L O2 NASAL CANULA. IV PATENT AND SODIUM PHOSPHATE INFUSING AT THIS TIME. ANTIBIOTICS GIVEN PER MAR. DENIES NAUSEA AT THIS TIME. PAIN BEING MANAGED WITH PO MEDICATION. THIGH HIGH TEDS AND SCD'S IN PLACE BILATERALLY. FALL PRECAUTIONS IN PLACE AND BED ALARM ON. HOURLY ROUNDS MAINTAINED THROUGHOUT THE SHIFT. CALL LIGHT WITHIN REACH. NURSING WILL CONTINUE TO MONITOR.
[2020-01-09 20:00] VITALS: BP 157/86
--- NOTE | 2020-01-10 04:47 | NUR ---
PT A&0 X 3-4, FORGETFUL. VSS ON 1.5-2L O2. MEDS GIVEN ORDERED. PT TAKES PO MEDS WITH APPLE SAUCE. PAIN MANAGED WITH PERCOCET. CHAN IN PLACE. HOURLY ROUNDING COMPLETED. WILL CONTINUE TO MONITOR.
[2020-01-10 05:20] LABS: CALCIUM 7.6 mg/dL (8.5-10.1); CREATININE 0.7 mg/dL (0.6-1.3); MAGNESIUM 2.1 mg/dL (1.8-2.4); PHOSPHORUS* 2.6 mg/dL (2.5-4.9); POTASSIUM 4.3 mmol/L (3.5-5.1)
--- NOTE | 2020-01-10 07:30 | CON ---
[address] [address] CONSULTATION Name: JEMIMA GARNER Room: [address] IN M.R.#: [id number] Admission: 01/06/20 Attend Phys: Nanette Varela Discharge: Date of : [birth year] Report #: [id number] THIS REPORT FOR: //name// cc: Russell Lopez Ryan D. DO ~ THIS REPORT FOR: //name// CC: Russell Oviedo DATE OF SERVICE: 01/07/2020 INFECTIOUS DISEASE CONSULTATION ATTENDING PHYSICIAN: Devang Oviedo DO REASON FOR EVALUATION: Pneumonitis and complicated urinary tract infection. HISTORY OF PRESENT ILLNESS: Chart reviewed and the patient examined. This is an 89-year-old woman with significant medical history including some dementia. She has known vasculopathy. She is residing in a facility having a complication related to shoulder surgery with septic arthritis and had been on antibiotics. She was noted to have increasing weakness and some dyspnea. Evaluation noted decreased sodium levels and also suggestion of pneumonitis. She was started on therapy and was given fluid restriction. She did have a cough, although it is nonproductive. It is not clear if she had fevers. She is somewhat puzzled by why she is there. Additional evaluation included urinalysis which showed some pyuria. Influenza antigen was negative. Lactic acid was elevated at 2.5. Chest x-ray confirmed multifocal opacities bilaterally. Blood cultures were collected and are sterile thus far. She was empirically started on therapy with vancomycin and levofloxacin. ALLERGIES: LISTED AMLODIPINE AND HYDRALAZINE. CURRENT MEDICATIONS: Include lisinopril, clonidine, spironolactone, clopidogrel, oxybutynin, levofloxacin 750 mg q. 48 hours, lactobacillus, digoxin, carvedilol, atorvastatin, aspirin, vancomycin 500 mg twice a day, diclofenac, and Zosyn. PAST MEDICAL HISTORY: As described above, hypertension, hyperlipidemia, history of PE, renal cell carcinoma, previous nephrectomy, and acute myocardial infarction. SOCIAL HISTORY: Nonsmoker. No ethanol. No illicit drug use. FAMILY HISTORY: [place] [address] CONSULTATION Name: JEMIMA GARNER Room: [address]#: [id number] Admission: 01/06/20 Attend Phys: Nanette Varela Discharge: Date of : [birth year] Report #: [id number] REVIEW OF SYSTEMS: Denies any significant gastrointestinal related complaints. Appetite is somewhat diminished. She has no idea about any weight gain or weight loss. PHYSICAL EXAMINATION: GENERAL: She is pleasant and cooperative. She is in mild distress. She does have some significant hearing deficits, appears somewhat undernourished and chronically ill appearing. VITAL SIGNS: Temperature 98.8, pulse 74, respirations 14, and blood pressure 188/75. SKIN: Warm and dry. No rashes. HEENT: Normocephalic. Extraocular muscles intact. NECK: Supple. LUNGS: Few scattered coarse breath sounds, primarily at the bases. HEART: Regular. Occasional ectopy. She has a soft systolic murmur. ABDOMEN: Soft. No apparent tenderness. No peritoneal signs. GENITOURINARY AND RECTAL: Deferred. LABORATORY DATA: CBC on admission: White count of 5.6, H and H of 8.6 and 25.1, and platelets of 289. Electrolytes: Sodium 121, potassium 3.7, chloride 90, bicarbonate is 22, anion gap of 9, BUN and creatinine are 9 and 0.9, and glucose of 247. AST of 26 and ALT of 6. Albumin of 2.0. Total protein is 5.6. Estimated GFR of 59. Lactic acid of 2.5. Troponin is 0.08. Chest x-ray as described above, [id number] cardiomegaly and multifocal opacities in bilateral lung azul, right perihilar region and the bases. Urinalysis; white count 16-25. Lactic acid on repeat was 1.8. Prealbumin of 14.7. ASSESSMENT AND PLAN: Pneumonitis, likely complicated urinary tract infection that certainly remains tenuous at this point. She is not overtly toxic. We will pare down therapy. I think dual combination is reasonable to approach at this point. We would necessarily expect any sort of atypical issues and it certainly raises question of underlying occult process; however, with her recent hospitalization, she certainly had a chest x-ray which failed to show anything that suggested a mass, I suspect. I will see if it clears and if it persists, we may need additional imaging like CT of the chest. We will monitor expectantly. She is certainly at risk for nosocomial related infectious complications. <ELECTRONICALLY SIGNED> By: Clement Wilkinson MD 01/10/20 0730 1202 [id number] Wilkinson MD /nt
[2020-01-10 08:00] VITALS: BP 180/85
--- NOTE | 2020-01-10 11:54 | NUR ---
UPDATED KRYSTAL/ALEXANDRA TAPIA ON PT. SHE SAID FAMILY HAS PUT HER ROOM ON HOLD TO SAVE HER ROOM THERE. WILL UPDATE HER AGAIN TOMORROW. SHE WILL NEED TO GET INSURANCE AUTH FOR PT.TO RETURN. P.T./O.T. ORDERED.
--- NOTE | 2020-01-10 15:18 | 2DMMODE ---
[place] [address] 2 D/M-MODE ECHOCARDIOGRAM Name: JEMIMA GARNER Room: [address] IN [facility]#: [id number] Admission: 01/06/20 Attend Phys: Devang Oviedo Discharge: Date of : [birth year] Date of Service: 01/10/20 1517 Report #: [id number] THIS REPORT FOR: cc: Russell Lopez Ryan D. DO Holkins,Salo Roper MD [facility] ~ APPROVED REPORT Study performed: 01/10/2020 09:43:39 EXAM: Comprehensive 2D, Doppler, and color-flow Echocardiogram Patient Location: In-Patient Room #: [facility] Status: routine BSA: 1.60 HR: 71 bpm BP: 157/86 mmHg Rhythm: NSR Other Information Study Quality: Good Indications Pleural Effusion Elevated bnp 2D Dimensions IVSd: 9.07 (7-11mm) LVOT Diam: 19.77 (18-24mm) LVDd: 55.97 mm PWd: 9.18 (7-11mm) Ascending Ao: 31.95 (22-36mm) LVDs: 41.19 (25-40mm) Aortic Root: 26.95 mm Volumes Left Atrial Volume (Systole) LA ESV Index: 57.00 mL/m2 Aortic Valve AoV Peak Gagandeep.: 1.34 m/s AO Peak Gr.: 7.16 mmHg LVOT Max P.64 mmHg AO Mean Gr.: 3.70 mmHg LVOT Mean P.28 mmHg LVOT Max V: 0.81 m/s AO V2 VTI: 26.29 cm LVOT Mean V: 0.52 m/s JANY (VTI): 1.95 cm2 LVOT V1 VTI: 16.[place] [address] 2 D/M-MODE ECHOCARDIOGRAM Name: JEMIMA GARNER Room: [address] IN ..#: [id number] Admission: 01/06/20 Attend Phys: Devang Oviedo Discharge: Date of : [birth year] Date of Service: 01/10/20 1517 Report #: [id number] Mitral Valve E/A Ratio: 1.36 MV Decel. Time: 151.25 ms MV E Max Gagandeep.: 0.97 m/s MV PHT: 43.86 ms MVA (PHT): 5.02 cm2 Pulmonary Valve PV Peak Gagandeep.: 0.83 m/s PV Peak Gr.: 2.78 mmHg Tricuspid Valve RAP Estimate: 5.00 mmHg TR Peak Gr.: 54.74 mmHg RVSP: 59.00 mmHg PA Pressure: 59.00 mmHg Left Ventricle Left ventricle is moderately dilated. Regional wall motion abnormalities are noted with anterior apical and inferoapical akinesis. There is normal left ventricular wall thickness. Left ventricular systolic function is severely decreased. LVEF is 20-25%. The left ventricular diastolic function is normal. Right Ventricle Right ventricle is borderline dilated. The right ventricular systolic function is normal. Atria Left atrium is moderately dilated. Right atrium is mildly dilated. Aortic Valve Mild aortic valve sclerosis. No aortic regurgitation is present. There is no aortic valvular stenosis. Mitral Valve Mild mitral annular calcification. Trace mitral regurgitation. No evidence of mitral valve stenosis. Tricuspid Valve The tricuspid valve is normal in structure. Mild tricuspid regurgitation. Pulmonic Valve The pulmonary valve is normal in structure. There is no pulmonic [place]vular [place] [address] 2 D/M-MODE ECHOCARDIOGRAM Name: JEMIMA GARNER Room: [address] IN ..#: [id number] Admission: 01/06/20 Attend Phys: Devang Oviedo Discharge: Date of : [birth year] Date of Service: 01/10/20 1517 Report #: [id number] Great Vessels The aortic root is normal in size. IVC is normal in size and collapses >50% with inspiration. Pericardium There is no pericardial effusion. Left pleural effusion. <Conclusion> Left ventricle is moderately dilated. There is normal left ventricular wall thickness. Left ventricular systolic function is severely decreased. LVEF is 20-25%. Right ventricle is borderline dilated. Left atrium is moderately dilated. Right atrium is mildly dilated. Mild aortic valve sclerosis. No aortic regurgitation is present. There is no aortic valvular stenosis. Mild mitral annular calcification. Trace mitral regurgitation. No evidence of mitral valve stenosis. The tricuspid valve is normal in structure. Mild tricuspid regurgitation. IVC is normal in size and collapses >50% with inspiration. There is no pericardial effusion. Regional wall motion abnormalities are noted with anterior apical and inferoapical akinesis. <ELECTRONICALLY SIGNED> By: Salo Patiño MD, FACC 01/10/20 1517 1517 1517 Salo Patiño MD, FACC /INF
--- NOTE | 2020-01-10 17:46 | NUR ---
ASSUMED CARE AT 0730. ALERT ORIENTED PLEASANT COOPERATIVE. HX OF LOW SODIUM AND PNEUMONIA. HAS LOOSE COUGH AT INTERVALS. O2 AT 2L/M PER N/C. PT. TAKES MEDS WHOLE 1 AT A TIME WITH APPLESAUCE. FEEDS SELF WITH SET UP WITH L HAND DUE TO L SHOULDER ISSUES INFECTION. O.T. P.T. WORKED WITH PT. THIS AFTERNOON. CHAN PATENT WITH ANA M URINE TO DD BAG. TURNS SELF IN BED WHEN ASKED TO TO STRAIGHTEN LINENS. PICC LINE CAT FOR IV ANTIBIOTICS. USES CALL LIGHT APPROPRIATELY FOR ASSISTANCE.
[2020-01-10 19:41] VITALS: BP 136/109
[2020-01-11 03:24] LABS: ABSOLUTE EOSINOPHILS 0.1 thou/uL (0.0-0.7); ABSOLUTE LYMPHOCYTES 0.8 thou/uL (0.8-5.3); ABSOLUTE MONOCYTES 0.9 thou/uL (0.0-1.2); ABSOLUTE NEUTROPHILS 5.8 thou/uL (1.6-8.1); BASOPHILS 0.3 %; EOSINOPHILS 1.4 %; HEMATOCRIT 26.2 % (37.0-47.0); HEMOGLOBIN 8.9 gm/dL (12.0-15.0); LYMPHOCYTES 10.2 %; MCH 30.7 pg (26.0-34.0); MCHC 34.1 g/dL (28.0-37.0); MCV 90.2 fL (80.0-100.0); MONOCYTES 11.4 %; MPV 7.8 fl. (7.2-11.1); NUCLEATED RBCS 0 /100WBC; PLATELET COUNT* 386 thou/uL (150-400); POLYS 76.7 %; RBC 2.91 mil/uL (4.20-5.00); RDW-CV 13.7 % (10.5-14.5); WBC 7.5 thou/uL (4.0-11.0)
[2020-01-11 03:44] LABS: ALBUMIN 2.1 g/dL (3.4-5.0); CREATININE 0.7 mg/dL (0.6-1.3); MAGNESIUM 1.8 mg/dL (1.8-2.4); PHOSPHORUS* 2.3 mg/dL (2.5-4.9); POTASSIUM 4.1 mmol/L (3.5-5.1); TOTAL BILIRUBIN 0.6 mg/dL (<0.1-1.0); TOTAL PROTEIN 5.2 g/dL (6.4-8.2)
--- NOTE | 2020-01-11 04:39 | NUR ---
PATIENT REPORTED NO PAIN OR NAUSEA. SHE WAS ABLE TO SLEEP ALL NIGHT. TOOK HER MEDS AT BEDTIME CRUSHED IN APPLESAUCE, DRINKING FLUIDS FINE. CHAN OUTPUT CONSISTENT. ON 1500 ML FLUID RESTRICTION SHE ADHERED TO. SHE HAD GOOD URINE OUTPUT IN CHAN. ON 2L - O2 OS SAT AROUND 97%. CAT PICC FLUSHING WELL BUT COULD NOT DRAW BLOOD FROM. PLAN IS TO STABILIZE SODIUM AND LASIX FOR ELEVATED K+. WILL CONTINUE TO FOLLOW PLAN OF CARE.
[2020-01-11 08:30] VITALS: BP 183/76
--- NOTE | 2020-01-11 12:00 | NUR ---
FAXED KRYSTAL/RIVERA UPDATES ON PT. SHE WILL SUBMIT TO INSURANCE FOR AUTHORIZATION FOR SKILLED BED. SHE FEELS SHE SHOULD HAVE IT BY TOMORROW AFTERNOON. DISCUSSED WITH . HE FEELS PT.WILL BE READY FOR DISCHARGE TOMORROW. TO ORDER ANTIBIOTICS, IF NEEDED, FOR PREVIOUS CONTINUATION OF COURSE OF IVAB FOR SEPTIC ARTHRITIS OF SHOULDER.
[2020-01-11 16:20] VITALS: BP 132/58
--- NOTE | 2020-01-11 19:49 | NUR ---
I ASSUMED CARE OF THE PATIENT AT 0700. SHE IS ALERT AND ORIENTED X4 AND IS UP WITH A WALKER/GAITBELT X1. BED IS IN THE LOW LOCKED POSITION AND CALL LIGHT IS IN REACH. HOURLY ROUNDING IS COMPLETED AND PATIENT NEEDS ARE MET. PAIN IS MANAGED WITH PRN MEDS. SON IS AT THE BEDSIDE MOST OF THE DAY. SHE NEEDS FOOD SETUP SINCE HER RIGHT HAND IS HARD TO USE. SON WENT TO [facility] TO PAY TO HOLD THE ROOM FOR AN ADDITIONAL DAY AND HE SAID THAT THEY WOULD NOT ALLOW HIM IN TO GET HER CLOTHES. WILL CONTINUE TO MONITOR.
[2020-01-11 19:50] VITALS: BP 185/66
[2020-01-12] VITALS: BP 154/70
--- NOTE | 2020-01-12 04:06 | NUR ---
ASSUMED CARE OF PT 01/11/20 AT APPROX 1930. PT A&OX4, PT ON 2L O2 NC, FLUID RESTRICTION MAINTAINED, PT TURNED Q2H, CHAN IN PLACE. ASSESSMENTS AND HOURLY ROUNDINGS COMPLETED. WILL CONTINUE TO MONITOR.
[2020-01-12 05:31] LABS: ABSOLUTE EOSINOPHILS 0.2 thou/uL (0.0-0.7); ABSOLUTE LYMPHOCYTES 0.9 thou/uL (0.8-5.3); ABSOLUTE MONOCYTES 0.8 thou/uL (0.0-1.2); ABSOLUTE NEUTROPHILS 5.8 thou/uL (1.6-8.1); BASOPHILS 0.6 %; EOSINOPHILS 2.1 %; HEMOGLOBIN 9.3 gm/dL (12.0-15.0); LYMPHOCYTES 11.8 %; MCH 31.3 pg (26.0-34.0); MCHC 34.6 g/dL (28.0-37.0); MCV 90.6 fL (80.0-100.0); MONOCYTES 10.7 %; MPV 7.8 fl. (7.2-11.1); NUCLEATED RBCS 0 /100WBC; PLATELET COUNT* 399 thou/uL (150-400); POLYS 74.8 %; RBC 2.98 mil/uL (4.20-5.00); RDW-CV 13.5 % (10.5-14.5); WBC 7.7 thou/uL (4.0-11.0)
[2020-01-12 05:58] LABS: ALBUMIN 2.1 g/dL (3.4-5.0); CALCIUM 8.2 mg/dL (8.5-10.1); CREATININE 0.7 mg/dL (0.6-1.3); MAGNESIUM 1.7 mg/dL (1.8-2.4); TOTAL BILIRUBIN 0.5 mg/dL (<0.1-1.0); TOTAL PROTEIN 5.5 g/dL (6.4-8.2)
[2020-01-12 08:23] VITALS: BP 187/85
[2020-01-12 10:35] VITALS: BP 187/85
[2020-01-12] MEDS ORDERED: FIBERCON625 M1 PO (10:57)
[2020-01-12] MEDS ORDERED: FUROSEMIDE 20 M20 MG PO (10:57)
[2020-01-12] MEDS ORDERED: LAXATIVE SUPPOS10 MG RECTAL (10:59)
[2020-01-12] MEDS ORDERED: SENNA8.8 MG/5 M PO (11:00)
[2020-01-12] MEDS ORDERED: ZOFRAN4 MG PO (11:01)
[2020-01-12] MEDS ORDERED: MAXIPIME1 GM IVPB (11:02)
[2020-01-12] MEDS ORDERED: SODIUM CHLORIDE50 M3 IVPB (11:05)
[2020-01-12] MEDS ORDERED: VANCOMYCIN HCL750 M1 IVPB (11:06)
--- NOTE | 2020-01-12 12:22 | NUR ---
cami spk w/adan at [facility]. adan will arrange transportation to have w/c and 2l of O2 for 1530 today. Michael notified and cami provided Michael w/list of ID doctors in network w/pt insur., i.e. [place] infect disease specialist [phone]. pt nursing is in agreement w/plan. number to call report [phone]. Ask for Sundar. cami to remain avial.
--- NOTE | 2020-01-12 15:59 | NUR ---
PT DISCHARGED TO [facility]. PICC LINE IN PLACE FOR IV ABX. CHAN IN PLACE FOR RETENTION. REPORT CALLED. PERSONAL BELONGINGS SENT WITH PT. PT STABLE UPONG DISCHARGE
== END 2020-01-12 16:06 | DRG 177 ==
LOC: M.ERS 17:39 → M.TBA-ER 18:56 → M.2W 18:56 → M.ORTHSURG 01-09 09:45
PROVIDERS: Emergency Medicine; Internal Medicine Nephrology; ADMIT Internal Medicine
PROC: 02H633Z Insertion of Infusion Device into Right Atrium, Percutaneous Approach (ICD-10-PCS; principal; 2020-01-06)
DX: J69.0 Pneumonitis due to inhalation of food and vomit (principal); E43 Unspecified severe protein-calorie malnutrition; J96.90 Respiratory failure, unspecified, unspecified whether with hypoxia or hypercapnia; M00.9 Pyogenic arthritis, unspecified; E87.1 Hypo-osmolality and hyponatremia; I50.20 Unspecified systolic (congestive) heart failure; G93.40 Encephalopathy, unspecified; J98.11 Atelectasis; D64.9 Anemia, unspecified; I25.10 Atherosclerotic heart disease of native coronary artery without angina pectoris; M25.579 Pain in unspecified ankle and joints of unspecified foot; I11.0 Hypertensive heart disease with heart failure; E78.5 Hyperlipidemia, unspecified; F03.90 Unspecified dementia, unspecified severity, without behavioral disturbance, psychotic disturbance, mood disturbance, and anxiety; I25.2 Old myocardial infarction; Z95.5 Presence of coronary angioplasty implant and graft; Z90.5 Acquired absence of kidney; Z86.711 Personal history of pulmonary embolism; Z85.528 Personal history of other malignant neoplasm of kidney; Z79.899 Other long term (current) drug therapy; Z79.51 Long term (current) use of inhaled steroids; Z79.82 Long term (current) use of aspirin; Z88.8 Allergy status to other drugs, medicaments and biological substances; Z68.22 Body mass index [BMI] 22.0-22.9, adult; Z90.49 Acquired absence of other specified parts of digestive tract

== ENCOUNTER 2020-02-06 08:45 | Inpatient (IN) | payer OTHER ==
[~2020-02-06] VITALS: Ht 167.6 cm; Wt 60.6 kg
[2020-02-06 08:45] VITALS: BP 119/41
[~2020-02-06 08:45] MED LIST changes: +ANCEF 1GM1 GM/50 M1 IVPB; +APAP650 PO; +ASA81BEC PO; +ASPERCREME1 EACH TOP; +BIOFREEZE118 ML TOP; +CALCIUM-VITAMI1 EACH PO; +CARVEDILOL25 MG PO; +CLONIDINE HCL0.2 M2 PO; +DIGITEK125 MC2 PO; +FIBER0.4 GM PO; +FIBERCON625 M1 PO; +FUROSEMIDE 20 M20 MG PO; +GENTLE LAXATIVE10 MG; +LACTOBACILLUS PO; +LAXATIVE SUPPOS10 MG RECTAL; +LEVAQUIN 750 M750 MG PO; +LIPITOR40 MG PO; +MAXIPIME1 GM IVPB; +MILK OF MA400 MG/5 M PO; +NITROSTAT0.4 M1; +OXYBUTYNIN 5 MG5 M2 PO; +PERCOCET 5-3251 EACH PO; +POLYOX WSR-3011 GM; +PROAIR HFA8.5 GM INH; +RESTASIS1 EACH OPHTHALMIC; +SENNA8.8 MG/5 M PO; +SODIUM CHLORIDE50 M3 IVPB; +SPIRONOLACTONE25 MG PO; +VANCOMYCIN HCL750 M1 IVPB; +VITAMIN B-121000 MC2 SUBLING; +VITAMIN C500 M2 PO; +VOLTAREN GEL 1100 G1 TOP; +ZOFRAN4 MG PO; +[UNRECOGNIZED DRUG - OTHER]
[2020-02-06 09:23] LABS: URINE BILIRUBIN NEGATIVE (Negative); URINE BLOOD 2+ (Negative); URINE CLARITY CLEAR; URINE COLOR YELLOW; URINE GLUCOSE-RANDOM NEGATIVE (Negative); URINE KETONES NEGATIVE (Negative); URINE LEUKOCYTES-REFLEX NEGATIVE (Negative); URINE NITRITE-REFLEX NEGATIVE (Negative); URINE PROTEIN 1+ (Negative); URINE SPECIFIC GRAVITY 1.015 (1.005-1.030); URINE UROBILINOGEN 0.2 E.U./dl (0.2-1.0)
[2020-02-06 09:34] LABS: SQUAMOUS 0-3 Few /LPF (0-3)
[2020-02-06 09:35] LABS: HEMATOCRIT 30.7 % (37.0-47.0); HEMOGLOBIN 10.2 gm/dL (12.0-15.0); MCHC 33.2 g/dL (28.0-37.0); MCV 90.3 fL (80.0-100.0); MPV 8.8 fl. (7.2-11.1); NUCLEATED RBCS 0 /100WBC; PLATELET COUNT* 326 thou/uL (150-400); RDW-CV 14.9 % (10.5-14.5); WBC 18.2 thou/uL (4.0-11.0)
[2020-02-06 09:37] LABS: HYALINE CASTS 0-3 Few /LPF (None Seen); MUCUS 0-3 Light strn/LPF (None Seen); URINE RBC 3-10 Few /HPF (0-2); URINE WBC-REFLEX 6-15 Few /HPF (0-5)
[2020-02-06 09:41] LABS: CRYSTALS None Seen /LPF (None Seen); INFLUENZA A ANTIGEN Negative (Negative); INFLUENZA B ANTIGEN Negative (Negative)
[2020-02-06 09:46] LABS: CALCIUM 9.4 mg/dL (8.5-10.1); CREATININE 2.5 mg/dL (0.6-1.3); INR 1.1; POTASSIUM 4.6 mmol/L (3.5-5.1); PROTIME 11.7 Seconds (9.20-11.50)
[2020-02-06 09:56] LABS: ALBUMIN 2.4 g/dL (3.4-5.0); TOTAL BILIRUBIN 0.8 mg/dL (<0.1-1.0); TOTAL PROTEIN 6.6 g/dL (6.4-8.2)
[2020-02-06 10:17] LABS: ABSOLUTE LYMPHOCYTES 1.5 thou/uL (0.8-5.3); ABSOLUTE MONOCYTES 1.5 thou/uL (0.0-1.2); ABSOLUTE NEUTROPHILS 15.3 thou/uL (1.6-8.1); PLATELET ESTIMATE ADEQUATE
[2020-02-06 10:18] LABS: ANISOCYTOSIS Occasional
--- NOTE | 2020-02-06 10:25 | NUR ---
RN COMMUNICATED WITH SON, ERIC, REGARDING CONCERNS FOR PT. PT SON REPORTS INCREASING WEAKNESS OVER PAST FEW DAYS POST DISCHARGE FROM REHABILITATION UNIT. SON ALSO REPORTS PT HAS HAD INCREASING PAIN SINCE DISCHARGE FROM REHAB MOSTLY IN BACK AND R HIP. PT YESTERDAY MORNING HAD INCREASE IN PERCOCET TO 2 PILLS Q6H SCHEDULED AND D/C TYLENOL PER PRIMARY PROVIDER. PT RECEIVED 3 DOSES Q6H APART OF INCREASED RX PRIOR TO ARRIVAL TO HOSPITAL. PT SON EXPRESSED CONCERN ABOUT AND WANT FOR IMAGING OF BACK R/T INCREASED PAIN. PT SON STATES HE HAS HAD TO MANUALLY LIFT HER MULTIPLE TIMES AT HOME AND IS CONCERNED THAT HE HAD INJURED HER SINCE SHE HAS HAD MULTIPLE OPERATIONS TO BACK PREVIOUSLY. PT SON REPORTS OPENNESS TO PURSUE HOSPICE TREATMENT IF NECESSARY BUT ALSO STATED "I WANT HER TO GET BETTER AND A GROUP HOME ISN'T GOING TO MAKE HER BETTER".
[2020-02-06 12:40] VITALS: BP 117/52
[2020-02-06 14:45] VITALS: BP 117/52
--- NOTE | 2020-02-06 14:56 | EKG ---
[place] [address] ELECTROCARDIOGRAM REPORT Name: JEMIMA GARNER Room: [address] ADM IN M.R.#: [id number] Admission: 02/06/20 Attend Phys: Dequan Bain, Discharge: Date of : [birth year] Date of Service: 02/06/20 0857 Report #: [id number] THIS REPORT FOR: //name// [facility] ED Test Date: 2020-02-06 Test Time: 08:57:03 Pat Name: JEMIMA GARNER Department: Room: [facility] Gender: F Materials Engineer: [facility] : 1930 Requested By: Max Dove Order Number: [id number] MD: Kilo Hinkle Measurements Intervals [place] Rate: 63 P: -21 GA: 210 QRS: 2 QRSD: 101 T: 137 QT: 381 QTc: 390 Interpretive Statements Sinus rhythm Left atrial enlargement Borderline low voltage, extremity leads Consider anterior infarct Borderline repolarization abnormality Compared to ECG 01/06/2020 18:18:12 Ectopic atrial rhythm no longer present Ventricular premature complex(es) no longer present First degree AV block no longer present Myocardial infarct finding still present Electronically Signed On 02-06-2020 14:55:11 CDT by Kilo Hinkle [email or web address] <ELECTRONICALLY SIGNED> By: Kilo Hinkle MD, [facility] 02/06/20 1455 0857 0857 Kilo Hinkle MD, [facility] /EPI
--- NOTE | 2020-02-06 19:01 | NUR ---
ASSUMED CARE OF THE PT AT 1500. pT ADMITTED TO 104 FROM THE ED. pT IS ALERT TO SELF. PT SR ON TELE. PT ON RA . LUNG ARE CLEAR. CHAN TO D/D DRAINING DARK YELLOW URINE WITH SEDIMENT. LT FA IV PATENT/ SL. NS INFUSING AT 70CC/HR ADJUSTED BY TRAVEL TRAILER COMPONENTS ASSEMBLER. ORDERS FOR RENAL US AND DOPPLER OF BLE. PT REQUIRED EVERY 2 HOUR TURNS. PRESSURE ULCER TO SACRAL AREA AND RED EXCORIATED KAYLIN AREA. FOAM DRESSING APLIED TO COCCYX WIH SKIN BARRIER. PT REQUIRED BEING FED. PT IS WEAK. APPEITE ID FAIR . PT DIFFIULTY SWALLOWING DUE TO WEAKNESS. 1-2+ ANTONI EDEMA. PT IS RESING QUIETLY IN BED WITH CALL LIGHT IN REACH. WILL CONTIUE TO MONITOR.
[2020-02-06 20:31] VITALS: BP 124/45
[2020-02-07] VITALS: BP 99/37
[2020-02-07 04:00] VITALS: BP 105/47
--- NOTE | 2020-02-07 05:59 | NUR ---
PT IS ABLE TO COMMUNICATE HER NEEDS TO STAFF WITH SOME DIFFICULTY; SHE IS A+OX1 (SELF) ONLY, CONFUSED, AND [id number]. CURRENT PAIN MEDICATION REGIMEN HAS BEEN ADEQUATE FOR CONTROLLING HER PAIN UP TO THIS TIME. COVID TESTING IS PENDING AT THIS TIME. CHAN HAS BEEN PATENT UP TO THIS TIME.
[2020-02-07 08:30] VITALS: BP 115/45
[2020-02-07 11:37] LABS: ABSOLUTE LYMPHOCYTES 0.3 thou/uL (0.8-5.3); ABSOLUTE MONOCYTES 1.2 thou/uL (0.0-1.2); ABSOLUTE NEUTROPHILS 18.2 thou/uL (1.6-8.1); EOSINOPHILS 0.1 %; HEMATOCRIT 25.3 % (37.0-47.0); HEMOGLOBIN 8.4 gm/dL (12.0-15.0); LYMPHOCYTES 1.5 %; MCH 30.1 pg (26.0-34.0); MCHC 33.4 g/dL (28.0-37.0); MCV 89.9 fL (80.0-100.0); MONOCYTES 5.9 %; MPV 9.2 fl. (7.2-11.1); NUCLEATED RBCS 0 /100WBC; PLATELET COUNT* 260 thou/uL (150-400); POLYS 92.5 %; RBC 2.81 mil/uL (4.20-5.00); RDW-CV 14.5 % (10.5-14.5); WBC 19.7 thou/uL (4.0-11.0)
[2020-02-07 11:44] LABS: CREATININE 2.3 mg/dL (0.6-1.3); POTASSIUM 3.9 mmol/L (3.5-5.1)
[2020-02-07 12:00] VITALS: BP 110/45
--- NOTE | 2020-02-07 14:26 | NUR ---
WOUND NURSE: PATIENT SEEN TO ADDRESS LESION ON SACRUM. PRESENTS WITH DARK PURPLE, NONBLANCHEABLE LESION ON THE SACRAL AREA, AND WITH PARTIAL THICKNESS TISSUE LOSS RESULTING IN SMALL AMOUNT OF SEROUSANGUINOUS DRAINAGE ON THE OLD DRESSING. AFFECTED AREA MEASURES 11.0 X 7.5 CM. WOUND WAS CLEANSED WITH SOAP AND WATER, RINSED WITH WATER, THEN PATTED DRY. APPLIED OPTIFOAM GENTLE AG TO WOUND AND PATIENT REPOSITIONED ONTO HER LEFT SIDE.
[2020-02-07 16:00] VITALS: BP 120/41
--- NOTE | 2020-02-07 16:21 | NUR ---
SW spoke with pt nurse, admissions at [facility], and pt luz elena August and dtr in [facility] to complete initial assessment, introduce self, and SW role. Pt [facility] from [facility] Pt luz elena August explained that they are interested in hospice services at dc whether a hospice house situation if appropriate or home with son Michael and hospice at home. They are not certain of their choice of hospice agency at this time but said possibly [facility] or [facility] as long as options in network with pt insurance. Pt luz elena August said that he is hopeful for pt pain to be in more control and also for SW/CM to contact Michael as well for dc planning. SW to continue to follow to assist with safe dc planning.
--- NOTE | 2020-02-07 19:59 | NUR ---
I ASSUMED CARE OF THE PATIENT AT 0700. SHE IS AWAKE, BUT NOT ALERT AND NON-VERBAL. BED IS IN THE LOW LOCKED POSITION AND CALL LIGHT IS IN REACH. SHE IS UNABLE TO USE THE CALL LIGHT. HOURLY ROUNDING IS COMPLETED AND PAIN IS DENIED. PATIENT NEEDS ARE MET. PATIENT IS DECLINING AND FAMILIY AND PHYSICIANS WERE NOTIFIED. THEY DECIDED TO CHANGE HER CODE STATUS TO DNR. HER HEARING AIDES WERE TAKEN TO THE ER REGISTARTION DESK FOR THE FAMILY TO [place] ENAMEL INSTALLER. LABS WERE DRAWN AND SENT. PATIENT DID NOT EAT OR DRINK ANYTHING ALL DAY. ORAL SWABS WERE DONE WITH TURNS EVERY 2 HOURS. WILL CONTINUE TO MONITOR.
[2020-02-07 20:19] VITALS: BP 106/50
[2020-02-08] VITALS: BP 121/40
[2020-02-08 04:00] VITALS: BP 103/51
--- NOTE | 2020-02-08 06:18 | NUR ---
PT IS NOT ABLE TO COMMUNICATE HER NEEDS TO STAFF; SHE HAS BEEN COMPLETELY NON-VERBAL AND MOSTLY NOT RESPONSIVE, EXCEPT FOR AN OCCASIONAL MOAN, SINCE YESTERDAY; MDs ARE AWARE. CURRENT PAIN MEDICATION REGIMEN SEEMS TO HAVE BEEN ADEQUATE FOR CONTROLLING HER PAIN UP TO THIS TIME. CODE STATUS IS DNR. COMFORT/PALLIATIVE CARE IS BEING DISCUSSED WITH PATIENT'S FAMILY. CHAN HAS BEEN PATENT UP TO THIS TIME; OUTPUT HAS BEEN LOW; MDs ARE AWARE. COVID TESTING RESULT WAS NEGATIVE.
[2020-02-08 06:30] LABS: CALCIUM 7.8 mg/dL (8.5-10.1); CREATININE 2.7 mg/dL (0.6-1.3); POTASSIUM 4.1 mmol/L (3.5-5.1)
--- NOTE | 2020-02-08 08:48 | CON ---
[address] [address] CONSULTATION Name: PATSYJEMIMA M Room: [address] IN M.R.#: [id number] Admission: 02/06/20 Attend Phys: Dequan Bain MD Discharge: Date of : [birth year] Report #: [id number] THIS REPORT FOR: //name// cc: Rosemary Claros MD, Elizabeth MD ~ THIS REPORT FOR: //name// CC: Dequan Corcoran DATE OF SERVICE: 02/07/2020 NEPHROLOGY CONSULTATION CONSULTING PHYSICIAN: Dr. Bain. REASON FOR NEPHROLOGY CONSULTATION: Acute kidney injury and hyponatremia. REASON FOR ADMISSION: Because she was altered mentally. HISTORY OF PRESENT ILLNESS: This is an 89-year-old female who was recently discharged from [facility] to [place], but came back again because her son felt that she has been very weak and she has been lethargic as well as confused. The patient has a past medical history of solitary kidney, history of left renal cell carcinoma, nephrectomy, PE, coronary artery disease, hypertension, hyperlipidemia, carotid artery stenosis, septic arthritis, has had shoulder surgery, and also has a decubitus ulcer who was brought in because of above-mentioned problems. She was found to have a sodium of 123, which is lower from her baseline, which runs more around 134 or early 130s. Creatinine was 2.5, whereas her baseline is normal 0.7, 01/12/2020. She also had a white count of 18.2 and a chest x-ray showed bilateral infiltrates and effusions and so COVID-19 being ruled out, so she is in the COVID-19 isolation alvarez. She was also found to have on abdominal CT scan fecal impaction, likely rectal impaction, a large pancreatic mass and left posterior chest wall mass and bilateral pulmonary nodules as well. Her medications as outpatient include enalapril, Aldactone and Lasix in addition to other medications. I am not sure how her oral intake has been. Her blood pressure was also low since she has been here, as low as 99/37. She also had urinary retention. Sosa catheter was placed on arrival to the ER and 2 liters of urine immediately came out and 275 after that through a Sosa catheter. The patient when I saw her, she has her eyes open, but she is not able to respond meaningfully, also seems to be having a right-sided facial droop, not sure if that is old or new for her. Did not notice any history of CVA in the past. Her review of systems otherwise could not be done because of her mental status and she was started on IV fluids since yesterday and [place] [address] CONSULTATION Name: JEMIMA GARNER Room: [address] IN ..#: [id number] Admission: 02/06/20 Attend Phys: Dequan Bain MD Discharge: Date of : 07/07/[birth year] Report #: [id number] ALLERGIES: AMLODIPINE AND HYDRALAZINE. REVIEW OF SYSTEMS: Not able to obtain because of her mental status. HOME MEDICATIONS: Include lidocaine patch, aspirin, atorvastatin, calcium phosphate, vitamin D3 gummies, carvedilol, digoxin, magnesium hydroxide, oxybutynin, clopidogrel, cyclosporine drops, spironolactone, diclofenac gel, enalapril, clonidine, oxycodone, albuterol, ascorbic acid, vitamin B12, menthol, polyethylene glycol, lactobacillus, hypromellose ____, nitroglycerin, psyllium, calcium polycarbophil, Lasix, bisacodyl, sennosides, ondansetron. PAST MEDICAL AND SURGICAL HISTORY: Includes in 2009 [place] with stent, 1 kidney in 2000 removed because of left-sided renal cell carcinoma, PE in 2011, parotid gland removal and radiation in 2014, five back operations, history of hypertension, hyperlipidemia, prior history of PE, carotid artery stenosis, septic arthritis, has had shoulder surgery. FAMILY HISTORY: Could not be reviewed with the patient. She is 89, so noncontributory as well. SOCIAL HISTORY: She came from [place]. She does not smoke. No recreational drugs or alcohol use. She has a supportive son according to the patient's chart. PHYSICAL EXAMINATION: VITAL SIGNS: Blood pressure is 105/47, respiratory rate is 18, pulse rate is 87, temperature 36.6 and pulse ox 99% currently on room air. GENERAL: She is awake. Her eyes open. She is not able to respond. HEAD AND EYES: Atraumatic, normocephalic. Normal conjunctivae. EARS, NOSE, AND THROAT: Normal ears and nose. She has a right-sided facial droop. Mucous membranes seem to be dry. NECK: No JVD. CHEST: Bilaterally clear to auscultation. Decreased breath sounds bilaterally, but no crackles could be heard. CARDIOVASCULAR: S1, S2 normal. No murmurs. ABDOMEN: Distended, especially in the lower abdominal area and not soft and bowel sounds are decreased. EXTREMITIES: Lower extremities There is no lower extremity edema. GENITOURINARY: There is a Sosa catheter in place with good amount of urine. NEUROLOGICAL FUNCTION: She is ____ with it. She is altered, not able to respond. PSYCHIATRIC: Not able to assess that with her altered mental status. LABORATORY DATA: Her white blood cell count was 18.2, her hemoglobin was 10.2. Her sodium was 123. Her potassium is 4.6, her chloride was ____, her BUN was [facility] [address] [place] [address] CONSULTATION Name: JEMIMA GARNER Fidel Room: [address] IN [facility]#: [id number] Admission: 02/06/20 Attend Phys: Dequan Bain MD Discharge: Date of : 07/07/[birth year] Report #: [id number] 45, her creatinine was 2.5 and her CPK was 130 and other labs are reviewed. IMAGING: Chest CT, abdominopelvic CT and chest x-ray were reviewed. ASSESSMENT: 1. Acute kidney injury in the setting of intravascular volume depletion, hypotension, looks like her oral intake is also possibly poor. She was also retaining urine, about 2 liters. She was on multiple diuretics and also enalapril. She was on Aldactone and Lasix as outpatient. Baseline creatinine is 0.7, came in with a creatinine of 2.5. UA reviewed, has 2+ blood, 6-15 per high power field, 3-10 rbc's per high power field, 1+ protein. Renal imaging showed solitary right kidney. Left kidney was removed due to renal cell carcinoma in the past. There is some mild pelviectasis in the right kidney, which might have improved after Sosa catheter placed and there is also right-sided renal cyst. 2. Altered mental status. On my exam there was a right-sided facial droop and head CT has not been done, might be a good idea to do that. 3. Urinary retention could be partly because of fecal impaction and altered mental status. 4. Fecal impaction, rectal impaction, a large pancreatic mass and left posterior chest wall mass. We will defer to primary team, looks like they have consulted GI. 5. Decubitus ulcer. 6. Pneumonia, bilateral infiltrates and COVID-19 infection is being ruled out and possibility of aspiration. 7. Hyponatremia, could be SIADH or could be due to intravascular volume depletion and use of diuretics. 8. History of septic arthritis. PLAN: 1. Please obtain labs this morning including basic metabolic panel. We will check serum and urine osmolality and TSH and we will check a cortisol in the morning as well. 2. Continue with IV fluids, normal saline at 70 mL an hour for now. 3. Please consider doing a head CT because of altered mental status and a possibility of right-sided facial droop, so stroke should be ruled out. I discussed this with the patient's nurse right away. 4. She is on vancomycin. Vancomycin level should be followed and it should not be redosed if level is more than 20. 5. Right-sided pelviectasis. She has a Sosa catheter now. She has resolved. If her kidney function does not improve, repeat renal imaging would be needed. Thank you for this consultation. We will continue to follow along with you. [address] [place] [address] CONSULTATION Name: JEMIMA GARNER Room: [address] IN .R.#: [id number] Admission: 02/06/20 Attend Phys: Dequan Bain MD Discharge: Date of : 07/07/30 Report #: [id number] I spent 35 minutes in critical care. This time was spent in chart review, placing orders and care coordination. <ELECTRONICALLY SIGNED> By: Abida Smith MD 02/08/20 0848 0925 [id number] Smith MD /nt
--- NOTE | 2020-02-08 10:48 | NUR ---
PT AT 0753. [facility] CONTACTED BY [facility] SH[facility]. PAPERWORK COMPLETED BY [facility] WELL. HOME HERE TO [facility] AT 1030. FAMILY NOTIFIED BY PRIOR SHIFT WELL.
--- NOTE | 2020-02-09 12:56 | CON ---
[address] [address] CONSULTATION Name: JEMIMA GARNER Room: [address] IN M.R.#: [id number] Admission: 02/06/20 Attend Phys: Dequan Bain MD Discharge: 02/08/20 Date of : 07/07/[birth year] Report #: [id number] THIS REPORT FOR: //name// cc: Rosemary Claros MD, Elizabeth MD ~ THIS REPORT FOR: //name// CC: Dequan Corcoran DATE OF SERVICE: 02/07/2020 HISTORY OF PRESENT ILLNESS: This is an 89-year-old female patient who was seen by me for altered mental status and weakness on the right side. The patient was discussed with the nurses looking after this patient. I talked to Dr. Bain, the hospitalist looking after this patient. This patient was admitted with hyponatremia. That hyponatremia has been present from as far back as 01/20/2020 and has been fluctuating and the last sodium was 126. Nephrology is seeing the patient in that regard. It was noticed that the patient had a right facial droop. CT scan of the head was done and that was reviewed and that does not appear to be showing any acute abnormality. REVIEW OF SYSTEMS: From the record, the patient has progressive confusion and weakness for one week. Record indicate that this patient had multiple other problems. She has back pain. She has a large pancreatic mass. She has pleural mass versus fluid. She is hyponatremic. She is in COVID unit at the moment and is on strict isolation. That was the relevant 14-point review of system, which was done in this patient. PAST MEDICAL HISTORY: Positive for what looks like hyponatremia. She had some fecal impaction. It is difficult to get review of system from the son. The patient is pretty much unresponsive on my examination. FAMILY HISTORY: Noncontributory. SOCIAL HISTORY: Apparently, she does not smoke. PHYSICAL EXAMINATION: Examination is pretty limited. She opens her eyes. She does not follow any commands. It is almost impossible to tell. Blood pressure is 110/45, respiration is 15, pulse is 62, temperature is 98.9 rather she does not have much temperature. LABORATORY DATA: Although her white count is up about 19.7. She is moderately built individual who does not have much dysmorphic features of eyes, ears [place] [address] CONSULTATION Name: JEMIMA GARNER Room: [address]#: [id number] Admission: 02/06/20 Attend Phys: Dequan Bain MD Discharge: 02/08/20 Date of : [birth year] Report #: [id number] IMPRESSION AND PLAN: It is not possible to form a good impression in this patient. She is pretty much unresponsive at the moment. I talked to the son very clearly and I discussed with him that either we can try to work her up to see if she has a stroke or any other intracranial pathology or confine ourselves to very conservative care or even palliative care in this patient. He is very clear that he wants very conservative care and want us to hold any further neurological testing like MRI, spinal tap, etc. at this time. He basically wants to confine to correcting the sodium and evaluating and treating infection and other systemic problems. That is reasonable in this case. If the son changes his mind in the future and want further neurological testing, please call us and we will be happy to follow her up. Otherwise, if he continue with the conservative care or make it palliative care, then that can be followed and we will be available if any help is needed. Thank you very much for this referral. <ELECTRONICALLY SIGNED> By: Keith Yee MD 02/09/20 1256 1510 [id number] Yee MD /nt
== END 2020-02-08 07:53 | DRG 871 ==
LOC: M.ERS 08:45 → M.ORTHSURG 09:53 → M.TBA-ER 09:53 → M.ORTHSURG 14:53
PROVIDERS: Family Medicine; Internal Medicine; ADMIT Internal Medicine
DX: A41.9 Sepsis, unspecified organism (principal); L89.153 Pressure ulcer of sacral region, stage 3; J69.0 Pneumonitis due to inhalation of food and vomit; E43 Unspecified severe protein-calorie malnutrition; G93.40 Encephalopathy, unspecified; E87.1 Hypo-osmolality and hyponatremia; C25.9 Malignant neoplasm of pancreas, unspecified; N17.9 Acute kidney failure, unspecified; Z51.5 Encounter for palliative care; Z20.828 Contact with and (suspected) exposure to other viral communicable diseases; I10 Essential (primary) hypertension; E78.5 Hyperlipidemia, unspecified; J94.9 Pleural condition, unspecified; K56.41 Fecal impaction; R65.20 Severe sepsis without septic shock; I95.9 Hypotension, unspecified; I25.10 Atherosclerotic heart disease of native coronary artery without angina pectoris; Z66 Do not resuscitate; I25.2 Old myocardial infarction; Z79.899 Other long term (current) drug therapy; Z68.21 Body mass index [BMI] 21.0-21.9, adult; Z85.53 Personal history of malignant neoplasm of renal pelvis; Z95.5 Presence of coronary angioplasty implant and graft; Z90.5 Acquired absence of kidney; Z86.711 Personal history of pulmonary embolism; Z79.82 Long term (current) use of aspirin; Z79.01 Long term (current) use of anticoagulants; R33.9 Retention of urine, unspecified